=== PATIENT | male | born 1945 | race Caucasian/White ===

== ENCOUNTER 2019-04-12 19:32 | Emergency (ER) | payer OTHER ==
[~2019-04-12] VITALS: Ht 165.1 cm; Wt 70.0 kg
[2019-04-12 19:38] VITALS: BP 108/60
== END 2019-04-13 00:46 | disposition left against medical advice (07) ==
LOC: ER 19:32
DX: Z53.21 Procedure and treatment not carried out due to patient leaving prior to being seen by health care provider (principal); I10 Essential (primary) hypertension